=== PATIENT | male | born 1985 | race Caucasian/White ===

== ENCOUNTER 2017-11-29 13:31 | Emergency (ER) | payer OTHER, SELFPAY ==
[2017-11-29 13:33] VITALS: BP 146/100; PULSE 85; RESP 16; TEMP 36.8; O2SAT 96; BMI 25.9
--- NOTE | 2017-11-29 14:02 | EKG12_ITS ---
Test Reason : Blood Pressure : / mmHG Vent. Rate : 081 BPM Atrial Rate : 081 BPM P-R Int : 126 ms QRS Dur : 092 ms QT Int : 392 ms P-R-T Axes : 061 070 045 degrees QTc Int : 455 ms Sinus rhythm with occasional Premature ventricular complexes Otherwise normal ECG Confirmed by SAIGE ALBRECHT, BUZZ ([id number]), news videotape editor LILIAN MANZANARES ([id number]) on 12/03/2017 1:56:31 PM Referred By: GISELLE Confirmed By:BUZZ MOULTON MD
--- NOTE | 2017-11-29 14:02 | RAD_ITS ---
STUDY: X-RAY CHEST REASON FOR EXAM: Male, 32 years old. Syncopal episode. TECHNIQUE: PA and lateral views of the chest. COMPARISON: None. FINDINGS: The lungs are clear and expanded. There is no demonstrated pleural abnormality. Normal size heart. Normal mediastinum and damaso. Normal visualized pulmonary arteries. Normal visualized aortic arch and descending thoracic aorta. Normal visualized thoracic spine. Normal visualized ribs, clavicles, and shoulders. There is no demonstrated abnormality of the visualized soft tissue structures of the upper abdomen. RAD/Chest PA and Lateral IMPRESSION: Normal x-ray examination of the chest. Electronically Signed: Leonel Ybarra MD at 14:55 EDT Tel [phone], Service support ,
[2017-11-29] MEDS: 0.9% Normal Saline 1,000 ML 1000 ML IV (14:33)
[2017-11-29 14:35] LABS: Absolute Neutrophil Count 5.2 X10^3/uL (2.0-7.7); Basophil# 0.02 X10^3/uL; Basophil% 0.3 % (0-1); Eosinophil# 0.05 X10^3/uL; Eosinophils% 0.7 % (0-5); Hematocrit 41.2 % (40-54); Hemoglobin 14.2 g/dl (13.0-16.5); Lymphocyte % 15.7 % (19-41); Mean Corp Hgb Conc 34.5 g/gl (32-36); Mean Corpuscular Hgb 31.5 pg (27.0-32.0); Mean Corpuscular Volume 91.4 fL (80-94); Mean Platelet Vol. 8.8 fl (6.2-12.0); Monocyte# 0.58 X10^3/uL; Monocyte% 8.3 % (0-10); Neutrophil # 5.24 X10^3/uL (2.7-7.7); Neutrophil % 74.9 % (47-70); POSITIVE COUNT NO; POSITIVE DIFFERENTIAL NO; POSITIVE MORPHOLOGY NO; Platelet Count 188 K/mm3 (150-450); RBC Distribution Width CV 11.8 % (11.6-14.6); RBC Distribution Width SD 39.9 fl (35.1-43.9); Red Blood Count 4.51 M/mm3 (4.6-6.2)
[2017-11-29 14:44] LABS: International Normalized Ratio 1.2; Prothrombin Time (Protime)PT. 15.2 SECONDS (11.7-14.9)
[2017-11-29 14:45] LABS: Partial Thromboplast Time 33.8 Seconds (24.1-36.2)
[2017-11-29 14:54] LABS: ALB/GLOB Ratio 0.9 RATIO (0.9-2.4); AST(SGOT) 23 U/L (15-37); Alanine Aminotransfer ALT/SGPT 45 U/L (16-61); Albumin, Serum 3.8 g/dL (3.2-5.0); Alkaline Phosphatase 39 U/L (45-117); Anion Gap 6 (5-15); BUN 11 mg/dL (7-18); BUN/Creat Ratio 10.6 RATIO (10-20); Calcium,Total 8.4 mg/dL (8.5-10.1); Chloride 105 mmol/L (98-107); Creatinine, Serum 1.04 mg/dL (0.70-1.30); EST Glomerular Filtration Rate 88 mL/min (>60); Est Glom Filt Rate - Afr Amer 106 mL/min (>60); Estimated Creatinine Clearance 101.97 ml/min; Globulin 4.1 g/dL (2.2-4.2); Glucose 114 mg/dL (74-106); Lipase 146 U/L (73-393); Potassium 3.7 mmol/L (3.5-5.1); Protein, Total 7.9 g/dL (6.4-8.2); Sodium Level 141 mmol/L (136-145)
[2017-11-29 15:00] LABS: Lactic Acid 0.9 mmol/L (0.4-2.0)
[2017-11-29] MEDS: 0.9% Normal Saline 1,000 ML 250 ML IV (15:06)
[2017-11-29 15:08] VITALS: BP 125/85; BP 132/92; BP 140/95; PULSE 84; PULSE 91; PULSE 96
[2017-11-29 15:33] LABS: Bacteria 0 SEEN /hpf (None Seen); Mucous, Urine 0 SEEN /hpf (<or=2+); Red Blood Cells-Urine 0 SEEN /hpf (0-5); Squamous Epithelial Cells - UA 0 SEEN /hpf (0-5)
[2017-11-29 15:46] LABS: Color, Urine Straw (Yellow); Glucose, Dipstick Normal (Normal); Ketone-Dipstick Negative (Negative); Leukocyte Esterase-Dipstick 500 /ul (Negative); Nitrite-Dipstick Negative (Negative); Occult Blood-Urine Negative /ul (Negative); Protein-Dipstick Negative (Negative); Specific Gravity, Urine 1.005 (1.002-1.030); Urine Bilirubin Dipstick Negative (Negative); Urine Clarity Clear (Clear); Urine Urobilinogen Normal (Normal)
[2017-11-29 16:02] LABS: White Blood Cells 0-5 SEEN /hpf (0-5)
--- NOTE | 2017-11-29 16:09 | ED.VISSUMM ---
- ER Visit Summary Date of Service: 11/29/17 Chief Complaint: Near syncope History of Present Illness: The patient is a 32 M who presents following a near syncopal episode. Patient states that since Sunday he has felt achy and just not quite himself. He is noted that his urine is darker than normal. He states that his is rather uncomfortable at the end of his stream. Today he has noticed a discharge in his underwear. States that the urethral meatus is inflamed but is glands are not swollen. He states that today at work he decided that he would go to urgent care. He stopped at [employer] and got a sandwich. While in the restaurant he decided to use the bathroom. He became very hot sweaty and lightheaded and felt like he was on a pass out. He was helped to a lopez and drank some water and eventually recovered. They sent him to urgent care. There he states he decided to come to the emergency room. 1 prior syncopal episode in his life following donation of blood. Physical Examination: Afebrile vital signs are stable Gen: Well-nourished well-developed Head: Normocephalic atraumatic Eyes: Perrl EOMI ENT: TMs clear no rhinorrhea moist mucous membranes Neck: Supple no lymphadenopathy no JVD nontender CVS: Regular rate rhythm no murmurs normal S1-S2 Respiratory: No distress clear to auscultation bilaterally chest nontender Abdomen: Soft nontender nondistended normal bowel sounds no masses Back: Nontender Extremity: Nontender no edema Skin: Normal color no rash Neuro: alert orientated ?3 CN II-XII intact normal strength sensation reflexes gait cerebellar Psych: Normal affect normal mood Test Results: CBC, BMP and liver panel negative. Lipase 146. Urinalysis normal with a specific gravity 1.005. Lactic acid 0.9. Troponin 0 0.02. EKG shows sinus rhythm at a rate of 81 with PVCs. Chest x-ray negative. Emergency Department Course and Treatment: Patient received IV fluids and was washed on the monitor. There have been no significant dysrhythmias noted. Clinically the patient had near syncopal episode today for which he is fully recovered. The patient clinically has a urethritis. Gonorrhea and Chlamydia are negative. I did speak with the lab in the rear and the microscopic state that there is no change in the results. I am going to give the patient a dose of Rocephin and azithromycin. Also place him on Pyridium and place him on Flagyl. Patient will need to follow-up with urology if not improving. Impression:. 1. Near syncope 2. Urethritis This note was generated with [employer] dictation software. It may contain incorrect words, spelling, and punctuation that were not noted in review of the chart prior to signing ED Disposition - Plan for ED Patient: Disposition: Home or Assisted Living Chief Complaint: Syncope Instructions: ED Urethritis Infec Vs Inflam Male, ED Near Syncope Unkn Prescriptions: Metronidazole 500 mg PO BID #14 tab Phenazopyridine HCl [Pyridium] 200 mg PO TID #9 tab Referrals: Burt Flores MD [STAFF PHYSICIAN] - (call to arrange follow up)
[2017-11-29 16:23] VITALS: BP 132/92; PULSE 88; RESP 15; O2SAT 99
[2017-11-29 16:57] LABS: Chlamydia Trachomatis by PCR Negative (Negative); Neisserai gonorrhoeae by PCR Negative (Negative); Probe Check PASS; Sample Adequacy Control PASS; Specimen Processing Control PASS
[2017-11-29] MEDS: Azithromycin 250 MG Tablet 1000 MG PO (17:54)
[2017-11-29] MEDS: Ceftriaxone 500 MG Vial 250 MG IM (17:55)
[2017-11-29 17:58] VITALS: BP 139/68; PULSE 88; RESP 15
== END 2017-11-29 18:00 | disposition home or self-care (01) ==
PROVIDERS: Emergency Provider Emergency Medicine
DX: R55 Syncope and collapse (principal); N34.2 Other urethritis; I49.3 Ventricular premature depolarization; Z79.899 Other long term (current) drug therapy
CPT/HCPCS: 71046; 80053; 81001; 83605; 83690; 84484; 85025; 85610; 85730; 87491; 87591; 93005; 96360; 96361; 96372; 99285

== ENCOUNTER 2023-02-11 13:53 | Emergency (ER) | payer OTHER, SELFPAY ==
[2023-02-11 13:54] VITALS: BP 118/81; PULSE 90; RESP 16; TEMP 36.5; O2SAT 100; BMI 25.9
--- NOTE | 2023-02-11 14:27 | EX.ED.DYSGE1 ---
HPI <MATTHIEU Muñoz - Last Filed: 02/11/23 20:09> History of Present Illness Chief Complaint: General Illness Narrative Narrative: Patient presenting today due to night sweats, intermittent fevers, pain to his frontal and maxillary sinuses, pain to his teeth, and pain behind his eyes that he has had since Sunday. He reports that at times he does not have any head pain at all, and then it will come back worse than it was before. He has no nasal congestion. He has had intermittent neck stiffness and generalized myalgias. He reports that about a week ago he was in [place] cleaning a shed at his parents house and there was a lot of rat feces in the shed that caused dust to be blown into the air and has concerns that he could have breathed it in and caused these symptoms. He did go to urgent care yesterday where a complete work-up was done including blood work and was told that this is likely a viral illness. He denies any coughing, shortness of breath, chest pain, abdominal pain, urinary symptoms, nausea, vomiting, diarrhea. PFSH <MATTHIEU Muñoz - Last Filed: 02/11/23 20:09> [facility] Medical History no medical history Home Medications metronidazole 500 mg tablet 500 mg PO BID #14 tabs 11/29/17 [Rx Last Taken Unknown] phenazopyridine 200 mg tablet 200 mg PO TID #9 tabs 11/29/17 [Rx Last Taken Unknown] amoxicillin 875 mg-potassium clavulanate 125 mg tablet 1 tab PO BID #14 tabs 02/11/23 [Rx Last Taken Unknown] Allergy/AdvReac Type Severity Reaction Status Date / Time No Known Allergies Allergy Verified 02/11/23 13:55 Family History no significant family his Social History Smoking Status: Current every day smoker tobacco type: cigarettes ROS <MATTHIEU Muñoz - Last Filed: 02/11/23 20:09> ROS ED Constitutional Constitutional ED: Reports chills, fever(s) and sweats Eyes Eyes: Denies blurry vision or diplopia ENT ENT ED: Denies ear pain, rhinorrhea or sore throat Cardiovascular Cardiovascular: Denies chest pain or palpitations Respiratory/Chest Respiratory/Chest: Denies cough or dyspnea Gastrointestinal Gastrointestinal: Denies abdominal pain, diarrhea, nausea or vomiting Genitourinary Genitourinary ED: Denies dysuria, hematuria or urinary urgency Musculoskeletal Musculoskeletal: Reports myalgias and neck pain Integumentary Denies rash Neurologic Neurologic: Reports headache(s); Denies weakness EXAM <MATTHIEU Muñoz - Last Filed: 02/11/23 20:09> Physical Exam Const Vital Signs: 02/11/23 13:54 Temperature 97.7 F L Temperature Source Temporal Pulse Rate 90 Respiratory Rate 16 Blood Pressure 118/81 H Blood Pressure Mean 93 Pulse Ox 100 Oxygen Delivery Method Room Air Positive well nourished, well developed and no apparent distress General Appearance ED: well developed HEENT Reports normocephalic and head/scalp atraumatic HEENT Narrative: Right TM clear, left TM slightly erythematous and bulging, no mastoid tenderness. Mouth ED: Yes moist mucous membranes normal Eyes PERRL and EOMs intact bilaterally Neck full ROM, supple and no meningeal signs General: Negative for tenderness Chest Wall inspection of chest normal Resp normal respiratory effort and clear to auscultation bilaterally Cardio regular rate and regular rhythm GI soft to palpation, non-tender, non-distended and no masses Back/Spine normal ROM and normal to inspection Extremity normal to inspection and full ROM Neuro oriented x3, CN's II-XII intact bilaterally, moves all extremities, no focal motor deficits and no sensory deficits noted Sensorium / Orientation: awake and alert Psych mental status grossly normal and thought process normal Skin no rashes or lesions noted and no wounds <Dr. Etienne Landaverde MD - Last Filed: 02/11/23 18:26> Physical Exam Const Vital Signs: 02/11/23 13:54 Temperature 97.7 F L Temperature Source Temporal Pulse Rate 90 Respiratory Rate 16 Blood Pressure 118/81 H Blood Pressure Mean 93 Pulse Ox 100 Oxygen Delivery Method Room Air MDM <MATTHIEU Muñoz - Last Filed: 02/11/23 20:09> [facility] Narrative Medical decision making narrative: Patient presenting due to headaches that he describes as being to his maxillary and frontal sinuses, his teeth hurting, and pain behind his eyes. This does sound like sinusitis, however patient is not having any nasal congestion. He has been waking up with night sweats and rigors since last Sunday. He does not have any respiratory symptoms or sore throat. He is not having any GI or symptoms. He has had generalized myalgias. He reports his neck feeling stiff at times, however examination shows no meningeal signs and he is not having any neck stiffness on examination. My suspicion for meningitis is low. He was seen at urgent care yesterday where they obtained a plethora of laboratory work including CBC, CMP, viral panel that tested for human metapneumovirus, parainfluenza virus, influenza A/B, COVID, and RSV which was all negative. Monotest was negative. CBC showed leukopenia and slightly low platelet count. Given patient's severe headaches over the past several days, head CT will be obtained to rule out intracranial abnormality and is negative for any acute findings. I have suspicions that this is likely viral, however patient does have an erythemic left TM. Bomont decision making was made and starting antibiotics for otitis media and patient would like to start them, he will be started on Augmentin. He is to follow-up with his PCP. He has been given Toradol here for his headache. He will be discharged home in stable condition and is comfortable with plan. Radiography Diagnostic Testing: Clinical Impression(s) from Imaging Studies Brain CT 02/11/23 15:06 IMPRESSION: No evidence of acute intracranial bleed, mass or ischemia. Electronically Signed: Sincere Quintanilla DO at 15:54 EDT , <Dr. Etienne Landaverde MD - Last Filed: 02/11/23 18:26> MDM Radiography Diagnostic Testing: Clinical Impression(s) from Imaging Studies Brain CT 02/11/23 15:06 IMPRESSION: No evidence of acute intracranial bleed, mass or ischemia. Electronically Signed: Sincere Quintanilla DO at 15:54 EDT , Treatment and Re-Evaluation Comments:: Seen and evaluated independently and in conjunction with physician culture media laboratory assistant. Agree with notes above unless documented otherwise. 4-5 days of almost pain in his facial sinuses although he has no pressure or rhinorrhea/congestion or cough or other respiratory symptoms, or earache or sore throat, or neck pain/stiffness although he has some muscle soreness there and headaches that are mostly bifrontal occasionally occipital, and episodes of fevers, last night he was up to 102, that make him feel very achy all over but no arthralgias. No vision changes, mental status changes, just feeling poorly without any other symptoms. No rashes. [place] around [place] areas and they are constantly checking for ticks and he has noted no tick bites lately, and has had no rashes. He states he was emptying a vacuum in [place] when he was helping his parents cleaning up an old shed and there was a mouse droppings there of unknown age. He had lots of blood test at urgent care prior to coming here. No travel out of the country recently. Never been to [place] or other place where malaria is endemic. Exam: Well-appearing no acute distress no sinus tenderness, mild erythema to the left tympanic membrane without perforation or obvious purulent effusion, neck is supple no meningismus full range of motion without any apparent difficulty, chin to chest without any significant difficulty, and negative Brudzinski sign. No cervical lymphadenopathy. Posterior oropharynx and nasal exam normal. CT of the head performed, I reviewed the images and the radiology interpretation and I agree with it. Basically negative, and also shows no signs of sphenoid sinusitis. Do not think the patient needs an LP for meningitis although we offered it, he declines. I do not think that is what he is examining like. His white blood count was low in the outpatient labs were reviewed those. He had a very low band count although the percentage was around 12% of the total, his white blood count was only in the 3 range. This is of unknown significance. We offered him Augmentin he is comfortable trying that, close a patient follow-up advised and we send a Lyme titer. Discharge Plan Triage Chief Complaint: General Illness ED Midlevel Provider: Juliet Fuentes ED Provider: Etienne Landaverde Dx/Rx/DC Orders Clinical Impression: Headache, Otitis media Instructions: Self-Care for Headaches, ED Otitis Media Antibiotic ... Prescriptions: New amoxicillin-pot clavulanate 875-125 mg tablet 1 tab PO BID Qty: 14 0RF No Action metronidazole 500 MG tablet 500 mg PO BID Qty: 14 0RF phenazopyridine 200 MG tablet 200 mg PO TID Qty: 9 0RF Primary Care Provider: Lesvia Young Referrals: Lesvia Young MD [Primary Care Provider] - 3-5 Days Activity Restrictions/Additional Instructions: Please follow-up with your PCP and return for any worsening symptoms. Disposition Disposition: Home, Self Care Discharge Date/Time: 02/11/23 16:42
--- NOTE | 2023-02-11 15:06 | CT_ITS ---
STUDY: CT BRAIN WITHOUT CONTRAST REASON FOR EXAM: Male, 37 years old. facial pain, fevers, headaches RADIATION DOSAGE (If Supplied By Facility): CTDIvol = ( 44.99 ) mGy, DLP = ( 782.05 ) mGycm TECHNIQUE: Transaxial CT imaging of the brain was performed without administration of intravenous contrast material. Individualized dose optimization techniques were used for this CT. COMPARISON: No relevant priors. FINDINGS: Normal soft tissue structures. Normal calvarium. Normal size ventricles and extra-axial spaces for the patient''s age. Normal white matter tracts of the cerebral hemispheres. Normal basal ganglia and thalami. Normal brainstem. Normal cerebellum. There is no intracranial hemorrhage. There are no findings of an acute ischemic infarction. Normal visualized paranasal sinuses. CT/Brain/Head without Contrast IMPRESSION: No evidence of acute intracranial bleed, mass or ischemia. Electronically Signed: Sincere Quintanilla DO at 15:54 EDT ,
[2023-02-11] MEDS: Ketorolac 15 MG/ML Vial IM (16:17)
[2023-02-14 11:09] LABS: Lyme IgG P18 Ab Absent (.); Lyme IgG P23 Ab Absent (.); Lyme IgG P28 Ab Absent (.); Lyme IgG P30 Ab Absent (.); Lyme IgG P39 Ab Absent (.); Lyme IgG P41 Ab Absent (.); Lyme IgG P45 Ab Absent (.); Lyme IgG P58 Ab Absent (.); Lyme IgG P66 Ab Absent (.); Lyme IgG P93 Ab Absent (.); Lyme IgG WB Interpretation Negative (.); Lyme IgM P23 Ab Present (.); Lyme IgM P39 Ab Absent (.); Lyme IgM P41 Ab Absent (.); Lyme IgM WB Interpretation Negative (.)
== END 2023-02-11 16:42 | disposition home or self-care (01) ==
PROVIDERS: Physician Assistant; Emergency Provider Emergency Medicine; PCP Family Medicine; Visit Provider Emergency Medicine
DX: R51.9 Headache, unspecified (principal); H66.92 Otitis media, unspecified, left ear; K08.89 Other specified disorders of teeth and supporting structures; H57.13 Ocular pain, bilateral; M43.6 Torticollis; M79.10 Myalgia, unspecified site; F17.210 Nicotine dependence, cigarettes, uncomplicated
CPT/HCPCS: 70450; 86617; 96372; 99282

== ENCOUNTER 2023-02-12 16:41 | Emergency (ER) | payer OTHER, SELFPAY ==
[2023-02-12 16:43] VITALS: BP 119/89; PULSE 105; RESP 18; TEMP 36.2; O2SAT 100; BMI 25.8
[2023-02-12] MEDS: Ketorolac 15 MG/ML Vial IV (19:17)
[2023-02-12 19:38] LABS: Absolute Lymphocyte Count 1.11 X10^3/uL (0.83-4.51); Absolute Neutrophil Count 4.1 X10^3/uL (2.0-7.7); Basophil# 0.01 X10^3/uL; Basophil% 0.2 % (0-1); Eosinophil# 0.04 X10^3/uL; Eosinophils% 0.7 % (0-5); Hematocrit 36.9 % (40-54); Hemoglobin 12.9 g/dL (13.0-16.5); Lymphocyte # 1.11 X10^3/ul (0.83-4.51); Lymphocyte % 19.3 % (19-41); Mean Corpuscular Hgb 31.6 pg (27.0-32.0); Mean Corpuscular Volume 90.4 fL (80-94); Mean Platelet Vol. 9.2 fl (6.2-12.0); Monocyte# 0.42 X10^3/uL; Monocyte% 7.3 % (0-10); NRBC Flagged by Analyzer 0 % (0-5); Neutrophil # 4.14 X10^3/uL (2.7-7.7); Neutrophil % 71.8 % (47-70); POSITIVE MORPHOLOGY YES; Platelet Count 164 K/mm3 (150-450); RBC Distribution Width CV 11.7 % (11.6-14.6); RBC Distribution Width SD 38.4 fl (35.1-43.9); Red Blood Count 4.08 M/mm3 (4.6-6.2); White Blood Count 5.8 K/mm3 (4.4-11.0)
[2023-02-12 19:40] LABS: Differential Indicated SCAN CRITERIA MET
--- NOTE | 2023-02-12 19:58 | EX.ED.DYSGE1 ---
HPI History of Present Illness Chief Complaint: Fever Informant: patient and spouse/S.O. Narrative Narrative: Patient's been having malaise fevers headaches for about 6 days now. He does not normally have history headaches. He states headaches really come on much more in the evening. He has had the highest fever about 102. Normally up to about 100.5 or 101. He has now developed some nasal congestion and drainage. He was seen in urgent care recently and had extensive work-up with viral studies and labs. He evidently did have a low white count. He was then seen here yesterday had a CAT scan done that showed no acute process. I looked at the reading and looked at the images. I am not seeing any notable sinusitis although we do not get complete visualization of the sinuses. He comes back in because he still having the headaches and some fevers. But he also developed a rash mostly on torso and proximal upper extremities. He did just start amoxicillin clavulanic acid. But he has been on amoxicillin many times without rash. He was also given Reglan by urgent care for headaches. He has not been on this before. He did have a travel to [place] recently was cleaning out sheds of his parents. No specific known exposures although there were a lot of insect and rodent feces in that area. [facility] Medical History Shingles (~10/02/22) Home Medications metronidazole 500 mg tablet 500 mg PO BID #14 tabs 11/29/17 [Rx Last Taken Unknown] amoxicillin 875 mg-potassium clavulanate 125 mg tablet 1 tab PO BID #14 tabs 02/11/23 [Rx Last Taken Unknown] ketorolac 10 mg tablet 10 mg PO TID PRN pain 5 days #15 tabs 02/12/23 [Rx Last Taken Unknown] Allergy/AdvReac Type Severity Reaction Status Date / Time No Known Allergies Allergy Verified 02/12/23 16:47 Surgical History no surgical history Social History Smoking Status: Current every day smoker tobacco type: cigarettes ROS ROS ED Constitutional Constitutional ED: Denies fever(s) Eyes Eyes: Denies blurry vision, change in vision or diplopia ENT ENT ED: Reports rhinorrhea; Denies ear pain or sore throat Cardiovascular Cardiovascular: Denies chest pain Respiratory/Chest Respiratory/Chest: Denies cough or dyspnea Gastrointestinal Gastrointestinal: Denies nausea or vomiting Genitourinary Genitourinary ED: Denies hematuria Musculoskeletal Musculoskeletal: Reports myalgias Integumentary Reports rash Neurologic Neurologic: Reports headache(s); Denies paresthesias or weakness Hematologic/Lymphatic Hematologic/Lymphatic: Reports lymphadenopathy and other Details: Patient did feel as though he may be developing lymph nodes in his neck that he noticed when he was shaving today. ; Denies easy bleeding or easy bruising Allergic/Immunologic Allergic/Immunologic ED: Denies urticaria EXAM Physical Exam Narrative Exam Narrative: CONSTITUTIONAL: Patient is nontoxic in appearance. The patient looks comfortable. Carries on a normal conversation. HEENT: No notable trauma. Mucous membranes moist. No sinus tenderness. Tympanic membranes are normal. No temporal artery tenderness. No facial rashes or swelling. No exudate in the throat. No thrush. EYES: No conjunctival injection. No proptosis. No pain with range of motion. No notable photophobia. NECK: No meningismus. No JVD. Range of motion is normal looking up down left and right without discomfort. He can move his neck without any difficulties. CARDIOVASCULAR: Regular rate. Regular rhythm. No notable murmur. No JVD. RESPIRATORY: No respiratory distress. Breathing is unlabored. No wheezes. No rhonchi. No rales. No pain with a deep breath. GASTROINTESTINAL: Not distended. Bowel sounds are normal. No tenderness. GENITOURINARY: No tenderness over the bladder. No CVA tenderness. MUSCULOSKELETAL: Atraumatic. No peripheral edema. No cord. No tenderness along the deep venous system. No asymmetry. NEUROLOGICAL: Patient is alert and oriented. No focal deficit noted. NIH stroke scale is 0. SKIN: Patient does have a few erythematous areas on chest and arms that seem to match side to side. These are somewhat consistent with medication reaction. But he has been on amoxicillin many times with no problems. This might be the Reglan. I think this can be held. No diaphoresis. No vesicles noted. PSYCHIATRIC: Patient is calm. Mood is appropriate. Const Vital Signs: 02/12/23 16:43 02/12/23 18:14 Temperature 97.1 F L Temperature Source Temporal Pulse Rate 105 H Respiratory Rate 18 Respiratory Effort Normal Non-Labored Respiratory Pattern Normal Blood Pressure 119/89 H Blood Pressure Mean 99 Pulse Ox 100 Oxygen Delivery Method Room Air MDM MDM MDM Narrative Medical decision making narrative: We had a long discussion with the patient. I did review his CT images. I am not seeing signs of sinusitis on these images. He had had some low white count more consistent with viral infection. We rechecked his CBC here today and his white count is normal. Minimal anemia that is nonspecific. Platelets are normal. Patient's electrolytes are normal. Patient's liver function test are normal . We talked about lumbar puncture. But they do not want this. I think that is reasonable considering he has no clinical indication of encephalitis whatsoever. He has headache but it waxes and wanes and is worse in the evening. This could be viral source but this would not be treated. I have no indication that this would be herpetic. This is not a bacterial picture. We was given IV fluids and Toradol. He states this is the best he has felt in days. I explained we can try some oral Toradol at home. He is comfortable with this plan. Lab Data Labs: Laboratory Results - last 24 hr 02/12/23 02/12/23 19:22 19:22 WBC 5.8 RBC 4.08 L Hgb 12.9 L Hct 36.9 L MCV 90.4 MCH 31.6 MCHC 35.0 RDW Std Deviation 38.4 RDW Coeff of [place] 11.7 Plt Count 164 MPV 9.2 Immature Gran % (Auto) 0.700 Neut % (Auto) 71.8 H Lymph % (Auto) 19.3 [place] % (Auto) 7.3 Eos % (Auto) 0.7 Baso % (Auto) 0.2 Absolute Neuts (auto) 4.1 Absolute Lymphs (auto) 1.11 Nucleated RBC % 0 Differential Comment SCANNED Sodium 139 Potassium 3.7 Chloride 104 Carbon Dioxide 30.0 Anion Gap 5 BUN 8 Creatinine 0.84 Estim Creat Clear Calc 120.41 Est GFR (MDRD) Af Amer 132 Est GFR (MDRD) Non-Af 109 BUN/Creatinine Ratio 9.5 L Glucose 104 Calcium 8.4 L Total Bilirubin 0.90 AST 34 ALT 56 Alkaline Phosphatase 59 Total Protein 7.1 Albumin 3.2 Globulin 3.9 Albumin/Globulin Ratio 0.8 L Discharge Plan Triage Chief Complaint: Fever ED Provider: Cyrus Castillo Dx/Rx/DC Orders Clinical Impression: Headache, History of fever, Acute viral syndrome Instructions: ED Viral Syndrome (Adult) Prescriptions: New ketorolac 10 mg tablet 10 mg PO TID PRN (Reason: pain) 5 Days Qty: 15 0RF No Action metronidazole 500 MG tablet 500 mg PO BID Qty: 14 0RF amoxicillin-pot clavulanate 875-125 mg tablet 1 tab PO BID Qty: 14 0RF Primary Care Provider: Lesvia Young Referrals: Lesvia Young MD [Primary Care Provider] - 1-2 Days if not improving Disposition Disposition: Home, Self Care
[2023-02-12 20:05] LABS: Differential Comment SCANNED
[2023-02-12 20:23] LABS: ALB/GLOB Ratio 0.8 RATIO (0.9-2.4); AST(SGOT) 34 U/L (15-37); Alanine Aminotransfer ALT/SGPT 56 U/L (16-61); Albumin, Serum 3.2 g/dL (3.2-5.0); Alkaline Phosphatase 59 U/L (45-117); Anion Gap 5 (5-15); BUN 8 mg/dL (7-18); BUN/Creat Ratio 9.5 RATIO (10-20); Calcium,Total 8.4 mg/dL (8.5-10.1); Chloride 104 mmol/L (98-107); Creatinine, Serum 0.84 mg/dL (0.70-1.30); EST Glomerular Filtration Rate 109 mL/min (>60); Est Glom Filt Rate - Afr Amer 132 mL/min (>60); Estimated Creatinine Clearance 120.41 ml/min; Globulin 3.9 g/dL (2.2-4.2); Glucose 104 mg/dL (74-106); Potassium 3.7 mmol/L (3.5-5.1); Protein, Total 7.1 g/dL (6.4-8.2); Sodium Level 139 mmol/L (136-145)
== END 2023-02-12 22:27 | disposition home or self-care (01) ==
PROVIDERS: Emergency Provider Emergency Medicine; PCP Family Medicine; Visit Provider Emergency Medicine
DX: B34.9 Viral infection, unspecified (principal); R51.9 Headache, unspecified; R09.81 Nasal congestion; R21 Rash and other nonspecific skin eruption; F17.210 Nicotine dependence, cigarettes, uncomplicated
CPT/HCPCS: 80053; 85025; 96361; 96374; 99282; J7040; A4216